=== PATIENT | male | born 1945 | race American Indian/Alaskan Native ===

== ENCOUNTER 2017-08-11 05:56 | Emergency (ER) | payer MEDICARE ==
[2017-08-11] MEDS ORDERED: TETRACAINE 0.5% OU ONE (06:59)
[2017-08-11] MEDS ORDERED: FUL-GLO OP ONE (06:59)
[2017-08-11] MEDS ORDERED: NORCO 5/325 ONE (07:03)
[2017-08-11] MEDS ORDERED: NORCO 5/325 PO ONE (07:06)
[2017-08-11] MEDS ORDERED: BOOSTRIX IM ONE (07:33)
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
[2017-08-11] MEDS ORDERED: MORPHINE IV ONE (08:53)
[2017-08-11] MEDS ORDERED: ZOFRAN IV ONE (09:06)
[2017-08-11 10:47] VITALS: BP 160/84
== END 2017-08-11 09:50 | disposition other institution (70) ==
LOC: ED 05:56
DX: T15.92XA Foreign body on external eye, part unspecified, left eye, initial encounter (principal); S05.02XA Injury of conjunctiva and corneal abrasion without foreign body, left eye, initial encounter; I10 Essential (primary) hypertension; Z88.0 Allergy status to penicillin; Z88.1 Allergy status to other antibiotic agents; W20.8XXA Other cause of strike by thrown, projected or falling object, initial encounter; Y93.89 Activity, other specified; Y99.8 Other external cause status; Y92.69 Other specified industrial and construction area as the place of occurrence of the external cause
CPT/HCPCS: 70480; 90471; 90715; 96374; 96375; 99285; J2270; J2405